=== PATIENT | female | born 1985 | race Caucasian/White ===

== ENCOUNTER 2020-11-03 02:21 | Outpatient (CLI) | payer BC, SELFPAY ==
[2020-11-03 18:46] LABS: SARS-CoV-2 RNA PCR Negative
== END 2020-11-03 02:22 | disposition home or self-care (01) ==
LOC: ANHCOVIDDT 02:21
PROVIDERS: PCP Internal Medicine; Visit Provider Obstetrics & Gynecology
DX: Z01.812 Encounter for preprocedural laboratory examination (principal); Z11.59 Encounter for screening for other viral diseases
CPT/HCPCS: 87635; C9803; U0003

== ENCOUNTER 2020-11-06 01:29 | Day surgery (SDC) | payer BC, SELFPAY ==
[2020-10-31 09:37] VITALS: BMI 24.2
[2020-11-06] VITALS (7 sets, daily range): BP systolic 102–121; BP diastolic 64–92; PULSE 71–97; RESP 12–18; TEMP 35.9–36.1; O2SAT 99–100
[2020-11-06] MEDS: LACTATED RINGERS 1,000 ML 30 ML IV CONT ×2 (07:10→08:41)
[2020-11-06] MEDS: ACETAMINOPHEN 500 MG TABLET 1000 MG PO (07:18)
[2020-11-06] MEDS: KETOROLAC 15 MG/ML VIAL (*BKC) IV PUSH (07:19)
--- NOTE | 2020-11-06 07:19 | WPDANESEPPF ---
Anes - Initial Pre Proc Eval Procedure: Operation Date: 11/06/20 07:30 Proposed Procedures p Diagnostic Laparoscopy - Ryan Morales MD Date/Time: 11/06/20 07:19 Surgeon: Ryan Morales MD Pre Op Diagnosis: Pelvic Pain Patient Data Age: 35 Gender: F Height: 5 ft 5 in Weight: 66 kg Allergies Allergy/AdvReac Type Severity Reaction Status Date / Time meperidine [From Demerol] Allergy Severe Anaphylactic Verified 11/06/20 07:06 Shock morphine Allergy Severe Hallucinati Verified 11/06/20 07:06 ng terbutaline AdvReac Intermediate Rash Verified 11/06/20 07:06 nifedipine AdvReac Mild rash Verified 11/06/20 07:06 Home Medications Medication Instructions Recorded Confirmed Type fluticasone propionate 50 1 spray NASAL DAILY 03/10/20 11/06/20 History mcg/actuation nasal spray,suspension ibuprofen 400 mg tablet 400 mg PO .prn tablet 03/10/20 11/06/20 History loratadine 10 mg tablet 10 mg PO DAILY 03/10/20 11/06/20 History polyethylene glycol 3350 17 17 gm PO DAILY PRN 05/02/20 11/06/20 History gram/dose oral powder dextroamphetamine-amphetamine 5 mg PO DAILY 10/31/20 11/06/20 History [Adderall XR] dicyclomine 10 mg capsule 10 mg PO .PRN cap 11/02/20 11/06/20 History linaclotide 290 mcg capsule 290 mcg PO DAILY #14 cap 11/02/20 11/06/20 Rx omeprazole 40 mg capsule,delayed 40 mg PO DAILY #30 cap 11/02/20 11/06/20 Rx release hydroxyzine HCl [Atarax] 10 mg PO TID 11/06/20 11/06/20 History Patient hx anesthesia problems: post op nausea/vomiting Family hx anesthesia problems: none PMFSH Past Medical History Medical History (Updated 11/02/20 @ 10:00 by NILSA Hopson) Abdominal pain Anxiety Back pain Constipation Dysphagia Epigastric hernia GERD (gastroesophageal reflux disease) IBS (irritable bowel syndrome) Marijuana abuse Marijuana abuse Nausea Osteoarthritis Surgical History Surgical History (Updated 05/02/20 @ 10:18 by Aleida Galarza CMA) H/O dilation and curettage x5 H/O LEEP H/O right knee surgery History of hernia repair 2012 and 2015 Hx of total cystectomy cyst removed on right arm 2019 Family History Family History (Updated 05/02/20 @ 10:19 by Aleida Galarza [facility]) Mother Patient's mother is Cancer Sibling Patient's sister is in good health Patient's brother is in good health Father Medical history unknown Grandparent Pancreatic abnormality Other Diabetes mellitus Family history of allergic disorder Social History Social History (Updated 06/27/20 @ 09:01 by Eve Alvarado [facility]) Smoking packs per day: 2 Smoking cigarettes per day: 40.0 Years smoked: 16 Smoking pack-years: 32.00 Smoking status: Current every day smoker (marijuana) Tobacco type: cigarettes Smoking end date: 06/13/20 Alcohol intake: current Substance use: current Substance use type: marijuana Last use: 2019 Living arrangements: alone Gender identity (if verbalized by the patient): Female Sexual Orientation (if Verbalized by the Patient): Straight or Heterosexual Spiritual care concerns: No Anes - Eval Final PreProcedure Day of Procedure 11/06/20 07:19 Patient weight: normal Heart: regular rate and rhythm Lungs: clear to auscultation Airway: Mallampati scale class II Neurological: alert and oriented Last oral intake: >/= 8 hours ASA classification: II Emergent: no Anesthetic plan: proceed Anesthesia type and monitoring: general ETT and standard monitoring Informed Consent: The patient's anesthetic plan and its attendant risks and benefits were discussed with the patient/family/POA. Questions were solicited and answers provided to the satisfaction of the patient/family/POA.
--- NOTE | 2020-11-06 07:21 | WPDHPUPDATE1 ---
History and Physical Update Update Date/Time: 11/06/20 07:21 History and Physical has been reviewed, including an updated exam of the patient. There are NO changes in the patient's condition. Risks, benefits, and alternatives have been discussed and questions answered. Patient agrees to proceed with procedure.
[2020-11-06] MEDS: SCOPOLAMINE 1.5 MG PATCH TRANSDERM (07:22)
--- NOTE | 2020-11-06 08:50 | P.OP_ITS ---
Procedure Note - Detailed Date of procedure: 11/06/20 Pre-op diagnosis: Pelvic Pain Procedure performed: diagnostic laparoscopy, bilateral resection of paratubal cysts Description of procedure: The patient was taken the operating room. She was prepped and draped in the dorsal lithotomy position after induction of general anesthesia. A 5 mm left upper quadrant incision was made in the abdominal skin with a scalpel. A 5 mm trocar was inserted the intra-abdominal cavity under direct visualization of the scope. A 5 mm left lower quadrant incision was made with the scalp on the abdominal skin and a 5 mm trocar was inserted the intra- abdominal cavity under direct visualization of the scope. A 5 mm infraumbilical incision was made with scalpel and a 5 mm trocar was inserted into the intra- abdominal cavity under direct visualization of the scope. Pelvis was examined in great detail. The paratubal cysts were removed bilaterally. There were 3 cysts. Two on the right and 1 on the left. The stalks were cauterized and transected. The paratubal cysts were ruptured and taken out through the left lower quadrant trocar site. The pneumoperitoneum was reduced. The trocars were removed. The patient was taken recovery room stable condition. Sponge lap and needle counts were correct x2. Anesthesia: GETA Surgeon: Ryan Morales MD Estimated blood loss (mL): 20 Drains: No Packing: No Complications: No immediate complications Condition: stable Disposition: PACU Findings: Bilateral paratubal cysts, redundant colon and rectum that folded over on itself twice within the posterior cul-de-sac.
[2020-11-06] MEDS: fentaNYL CITRATE INJ (*CRX) 100 MCG/2 ML VIAL 25 MCG IV PUSH ×4 (08:58→09:15)
[2020-11-06] MEDS: oxyCODONE HCL (*CRX) 5 MG TAB IR PO (09:57)
== END 2020-11-06 10:25 | disposition home or self-care (01) ==
PROVIDERS: PCP Internal Medicine; Visit Provider Obstetrics & Gynecology
PROC: (CPT 49320; principal; 2020-11-06 07:30)
DX: N83.8 Other noninflammatory disorders of ovary, fallopian tube and broad ligament (principal); F41.9 Anxiety disorder, unspecified; R13.10 Dysphagia, unspecified; K43.9 Ventral hernia without obstruction or gangrene; K21.9 Gastro-esophageal reflux disease without esophagitis; K58.9 Irritable bowel syndrome, unspecified; F12.10 Cannabis abuse, uncomplicated; Z87.891 Personal history of nicotine dependence; R11.0 Nausea; M19.90 Unspecified osteoarthritis, unspecified site
CPT/HCPCS: 58662; 88305; A9270; J1100; J1885; J2250; J2405; J2704; J2710; J3010; J7030; J7120; Q9968

== ENCOUNTER 2021-03-12 14:10 | Outpatient (CLI) | payer BC, SELFPAY ==
[2021-03-12 14:54] LABS: Basophils Absolute Auto 0.1 K/mm3 (0.0-0.1); Basophils Percent Auto 0.6 % (0.2-1.2); Eosinophils Absolute Auto 0.2 K/mm3 (0-0.3); Eosinophils Percent Auto 1.8 % (0-4.4); Hematocrit 39.2 % (37.0-47.0); Hemoglobin 13.4 g/dL (12.0-15.0); Immature Granulocyte Absolute 0.03 K/mm3 (0.00-0.031); Immature Granulocyte Percent A 0.3 % (0-0.5); Lymphocytes Absolute Auto 3.14 K/mm3 (0.9-3.2); Lymphocytes Percent Auto 31.2 % (18.3-44.2); Mean Corpuscular HGB Conc 34.2 g/dl (32-36); Mean Corpuscular Hemoglobin 30.9 pg (26-34); Mean Corpuscular Volume 90.5 fl (80-100); Mean Platelet Volume 11.6 fl (7.4-10.4); Monocytes Absolute Auto 0.7 K/mm3 (0.1-0.6); Monocytes Percent Auto 6.8 % (2.6-8.5); Neutrophils Percent Auto 59.3 % (45.5-73.1); Platelet Count Result 221 k/mm3 (150-375); Red Blood Count 4.33 M/mm3 (4.2-5.4); Red Cell Distribution Width 11.9 % (11.5-14.5); White Blood Count 10.1 K/mm3 (4.5-10.0)
[2021-03-12 15:06] LABS: Rheumatoid Factor < 8.6 IU/ML (<12)
[2021-03-12 15:07] LABS: Alanine Aminotransferase 12 U/L (4-35); Albumin Level 4.4 g/dL (3.5-5.1); Alkaline Phosphatase 56 U/L (38-126); Anion Gap 5 mmol/L (8-16); Aspartate Amino Transferase 27 U/L (14-36); Bilirubin,Total 0.3 mg/dL (0.2-1.3); Blood Urea Nitrogen 19 mg/dL (7-17); CRP < 0.5 mg/dL (<1.0); Calcium 8.9 mg/dL (8.4-10.2); Carbon Dioxide 27 mmol/L (22-30); Chloride 106 mmol/L (98-107); Estimated Glomerular Filt Rate > 60; Glucose 105 mg/dL (65-105); Potassium 3.7 mmol/L (3.4-5.0); Sodium 138 mmol/L (137-145)
[2021-03-12 15:35] LABS: Thyroid Stimulating Hormone 0.602 uIU/mL (0.465-4.680)
[2021-03-12 15:49] LABS: Iron 148 ug/dL (37-170)
[2021-03-12 15:50] LABS: Erythrocyte Sedimentation Rate 6 mm/hr (0-20)
[2021-03-12 15:58] LABS: Percent Iron Saturation 49 % (20-50)
[2021-03-12 16:08] LABS: Vitamin D 25 Hydroxy 44.2 ng/mL
[2021-03-12 16:10] LABS: Folic Acid 16.2 ng/mL (2.76->20)
== END 2021-03-12 14:11 | disposition home or self-care (01) ==
PROVIDERS: PCP Internal Medicine; Visit Provider Clinical Nurse Specialist
DX: D64.9 Anemia, unspecified (principal); E55.9 Vitamin D deficiency, unspecified; M79.10 Myalgia, unspecified site; R53.83 Other fatigue
CPT/HCPCS: 36415; 80053; 82306; 82607; 82728; 82746; 83540; 83550; 84443; 85025; 85652; 86038; 86140; 86430

== ENCOUNTER 2023-09-08 11:54 | Outpatient (CLI) | payer BC, SELFPAY ==
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
== END 2023-09-08 11:55 | disposition home or self-care (01) ==
LOC: ANHIMG 11:58
PROVIDERS: PCP Internal Medicine; Visit Provider Emergency Medicine
DX: R93.6 Abnormal findings on diagnostic imaging of limbs (principal); W19.XXXD Unspecified fall, subsequent encounter
CPT/HCPCS: 73080; 73610; 73650